=== PATIENT | female | born 1945 | race Caucasian/White ===

== ENCOUNTER 2018-12-22 07:27 | Inpatient (IN) ==
[2018-12-15 12:02] LABS: Appearance,Urine CLEAR; Bacteria,Urine 0 /hpf (0); Bilirubin,Urine NEG (NEG); Color,Urine YELLOW; Glucose,Urine (UA) NEGATIVE (NEG); Ketones,Urine NEG (NEG); Leukocyte Esterase,Urine NEG /uL (NEG); Mucus,Urine FEW /hpf (0); Nitrate,Urine NEG (NEG); Protein,Urine NEG (NEG); Specific Gravity,Urine 1.017 (1.000-1.035); Urine Blood 0.03 mg/dL (<0.03); Urine RBC 3 /hpf (0-1); Urine Squamous Epithelial Cell 1 /hpf (0-4); Urine WBC 4 /hpf (0-4); Urobilinogen,Urine NEG (NEG)
[2018-12-15 15:35] LABS: Basophils # (Auto) 0 K/mcL (0.0-0.3); Basophils % (Auto) 0.6 % (0.0-2.0); Eosinophils # (Auto) 0 K/mcL (0.0-0.7); Eosinophils % (Auto) 0.5 % (0.0-7.0); Granulocytes % (Auto) 66.7 % (38.0-78.0); Hematocrit 40.6 % (36.0-48.0); Hemoglobin 13.3 g/dL (12.0-15.0); Lymphocytes # (Auto) 1.2 K/mcL (1.5-4.8); Lymphocytes % (Auto) 23.9 % (15.5-49.0); Mean Cell Volume 92.3 fL (80.0-100.0); Mean Corpuscular HGB Conc 32.7 g/dL (31.0-36.0); Monocytes # (Auto) 0.4 K/mcL (0.1-0.9); Monocytes % (Auto) 8.3 % (1.0-12.0); Platelet Count 228 K/mcL (140-440); Red Cell Distribution Width 14.3 % (11.5-14.5); WBC 4.9 K/mcL (4.5-11.0)
[2018-12-15 15:43] LABS: INR 2.2 (0.9-1.1); Prothrombin Time 23.9 sec (11.9-14.5)
[2018-12-15 17:10] LABS: Blood Urea Nitrogen 31 mg/dl (8-23); Carbon Dioxide 28 mmol/L (22-30); Chloride 99 mmol/L (96-108); Glomerular Filtration Rate 63; Glucose 84 mg/dL (70-105)
[~2018-12-22 07:27] MED LIST: 0.9 % SODIUM CHLORIDE 9 ML, KETOROLAC 30 MG, ROPIVACAINE HCL/PF 49.5 ML, EPINEPHrine 0.... IJ SCH; ceFAZolin 2 GM in DEXTROSE 5% IN WATER 50 ML IV SCH
[2018-12-22] MEDS ORDERED: IPRATROPIUM/ALBUTEROL 3 ML AMPUL.NEB NEB PRN ×2 (08:46→10:43)
[2018-12-22] MEDS ORDERED: SCOPOLAMINE 1 PATCH PATCH TOPICAL PRN (08:46)
[2018-12-22] MEDS ORDERED: PHENYLEPHRINE 10 MG/ML VIAL IV ONE (09:35)
[2018-12-22] MEDS ORDERED: TRANEXAMIC ACID 1,000 MG/10 ML VIAL IV ONE ×2 (09:35→11:21)
[2018-12-22] MEDS ORDERED: ONDANSETRON 4 MG/2 ML VIAL IV ONE (09:35)
[2018-12-22] MEDS ORDERED: ePHEDrine 50 MG/ML AMPUL IV ONE (09:35)
[2018-12-22] MEDS ORDERED: MIDAZOLAM 5 MG/5 ML VIAL IV ONE (09:35)
[2018-12-22] MEDS ORDERED: ROPIVACAINE HCL/PF 20 ML VIAL IJ ONE (09:35)
[2018-12-22] MEDS ORDERED: PROPOFOL 200 MG/20 ML VIAL IV ONE (09:35)
[2018-12-22] MEDS ORDERED: LIDOCAINE HCL/PF 100 MG/5 ML SYRINGE IV ONE (09:35)
[2018-12-22] MEDS ORDERED: GLYCOPYRROLATE 0.2 MG/ML VIAL IV ONE (09:35)
[2018-12-22] MEDS ORDERED: DEXAMETHASONE 10 MG/ML VIAL IV ONE (09:35)
[2018-12-22] MEDS ORDERED: GENTAMICIN SULFATE 800 MG/20 ML VIAL IR ONE (10:07)
[2018-12-22] MEDS ORDERED: MEPERIDINE 25 MG/ML SYRINGE IV PRN (10:43)
[2018-12-22] MEDS ORDERED: METOPROLOL TARTRATE 5 MG/5 ML VIAL IV PRN (10:43)
[2018-12-22] MEDS ORDERED: FLUMAZENIL 0.1 MG/ML ML IV PRN (10:43)
[2018-12-22] MEDS ORDERED: diphenhydrAMINE 50 MG/ML VIAL IV PRN (10:43)
[2018-12-22] MEDS ORDERED: NALOXONE HCL 0.4 MG/ML VIAL IV PRN (10:43)
[2018-12-22] MEDS ORDERED: ACETAMINOPHEN 1,000 MG/100 ML BOTTLE IV ONE (10:43)
[2018-12-22] MEDS ORDERED: ATROPINE SULFATE 0.4 MG/ML VIAL IV PRN (10:43)
[2018-12-22] MEDS ORDERED: METHOCARBAMOL 1,000 MG/10 ML VIAL IV PRN (10:43)
[2018-12-22] MEDS ORDERED: ePHEDrine 50 MG/ML AMPUL IV PRN (10:43)
[2018-12-22] MEDS ORDERED: ONDANSETRON 4 MG/2 ML VIAL IV PRN ×2 (10:43→11:21)
[2018-12-22] MEDS ORDERED: PROMETHAZINE 25 MG/ML VIAL IV PRN (10:43)
[2018-12-22] MEDS ORDERED: LACTATED RINGERS 1,000 ML IV SCH (10:45)
[2018-12-22] MEDS ORDERED: BENZOCAINE/MENTHOL 1 LOZENGE PO PRN (11:21)
[2018-12-22] MEDS ORDERED: MAGNESIUM HYDROXIDE 30 ML ORAL.SUSP PO PRN (11:21)
[2018-12-22] MEDS ORDERED: POLYETHYLENE GLYCOL 3350 17 GM PACKET PO PRN (11:21)
[2018-12-22] MEDS ORDERED: FLEETS ADULT ENEMA PR PRN (11:21)
[2018-12-22] MEDS ORDERED: BISACODYL 10 MG SUPP.RECT PR PRN (11:21)
[2018-12-22] MEDS: fentaNYL 100 MCG/2 ML VIAL IV PRN ×4 (11:31→12:03)
--- NOTE | 2018-12-22 11:32 | Brief Operative Note ---
Date of procedure: 12/22/18 Pre-op diagnosis: l knee djd Post-op diagnosis: same Procedure: SUHA TKR Grafts/Implants: Yes (TRIATHLON KNEE SIXE 2 FEMUR, 9 MM cr POLY, 2 TIBIA, 29 MM PATELLA) Anesthesia: GETA Complications: none Surgeon: Jasson Demarco Slitting And Shipping Supervisor: Jasson Damico Estimated blood loss (cc): 100 Tourniquet Time (Minutes): 59 Specimens Removed/Pathology: other (SYNOVIAL BIOPSY) Condition: stable Disposition: PACU
--- NOTE | 2018-12-22 12:31 | XRay Report ---
CLINICAL INFORMATION: post op COMPARISON: None. FINDINGS: Total knee prostheses is anatomically aligned. No osseous abnormality. Periarticular gas and soft tissue swelling seen as expected. IMPRESSION: Negative Interpreted and Authenticated by: Son Mann 12/22/18
[2018-12-22] MEDS ORDERED: WARFARIN 3 MG TABLET PO SCH (14:00)
[2018-12-22] MEDS: 0.9 % SODIUM CHLORIDE 10 ML SYRINGE IV SCH ×2 (14:03→20:32)
[2018-12-22] MEDS: 0.9 % SODIUM CHLORIDE 1,000 ML IV SCH (14:29)
[2018-12-22] MEDS: HYDROCODONE/APAP 7.5/325MG TABLET PO PRN ×3 (14:53→23:21)
[2018-12-22] MEDS: ceFAZolin 1 GM VIAL IV SCH (16:28)
[2018-12-22] MEDS: DOCUSATE SODIUM 100 MG CAPSULE PO SCH (20:31)
[2018-12-22] MEDS ORDERED: SENNOSIDES 1 TABLET PO SCH (21:00)
[2018-12-22] MEDS ORDERED: ATORVASTATIN 20 MG TABLET PO SCH (21:00)
[2018-12-22] MEDS: ENOXAPARIN 60 MG/0.6 ML SYRINGE SQ SCH (23:21)
[2018-12-23] MEDS: ceFAZolin 1 GM VIAL IV SCH (01:32)
[2018-12-23] MEDS: 0.9 % SODIUM CHLORIDE 1,000 ML IV SCH ×2 (03:19→14:32)
[2018-12-23] MEDS: HYDROCODONE/APAP 7.5/325MG TABLET PO PRN (03:20)
[2018-12-23] MEDS: 0.9 % SODIUM CHLORIDE 10 ML SYRINGE IV SCH ×2 (04:57→14:30)
[2018-12-23 05:35] LABS: INR 1.1 (0.9-1.1); Prothrombin Time 14.1 sec (11.9-14.5)
[2018-12-23 05:37] LABS: Basophils # (Auto) 0 K/mcL (0.0-0.3); Basophils % (Auto) 0.3 % (0.0-2.0); Eosinophils # (Auto) 0 K/mcL (0.0-0.7); Eosinophils % (Auto) 0 % (0.0-7.0); Granulocytes % (Auto) 80.8 % (38.0-78.0); Hematocrit 30.9 % (36.0-48.0); Lymphocytes # (Auto) 0.7 K/mcL (1.5-4.8); Lymphocytes % (Auto) 10.5 % (15.5-49.0); Mean Cell Volume 93.4 fL (80.0-100.0); Mean Corpuscular HGB Conc 32.3 g/dL (31.0-36.0); Monocytes # (Auto) 0.6 K/mcL (0.1-0.9); Monocytes % (Auto) 8.4 % (1.0-12.0); Platelet Count 173 K/mcL (140-440); RBC 3.31 M/mcL (4.00-5.20); Red Cell Distribution Width 14.7 % (11.5-14.5); WBC 7.1 K/mcL (4.5-11.0)
[2018-12-23] MEDS ORDERED: OMEPRAZOLE 20 MG CAPSULE PO SCH (07:30)
[2018-12-23] MEDS ORDERED: LEVOTHYROXINE 88 MCG TABLET PO SCH (07:30)
[2018-12-23] MEDS ORDERED: HYDROmorphone 2 MG TABLET PO PRN (07:32)
--- NOTE | 2018-12-23 07:45 | Discharge Summary ---
Ortho Discharge - TKA - Patient Instructions Diet: Regular Diet Total Knee Protocol: For Total Knee: Start ROM EDWARDO with stationary bike or rocking chair. Work on gaining full extension of knee. Posterior dislocation precautions provided. Hip abductor strengthening and gait training instructions provided. Apply Cryocuff as instructed. Additional Instructions: Take your last does of Coumadin on December 17. Restart Coumadin & Lovenox the evening of your procedure, unless instructed otherwise. Must be started 12 hours after surgery. You will need to continue Lovenox for 5-7 days after your procedure. Have your Protime/INR drawn on Wednesday, 12/27 at 12:30 at the [facility]. - Problem Maintenance (1) Chronic knee pain after total replacement of left knee joint Status: Acute - Follow Up Plan Follow Up Appointments: Jasson Damico PA-C [Physician Social Human Services Assistants] - 01/04/19 8:40 am Disposition: Home, Self-Care Prognosis: Good Rehab Potential: Good I certify that the patient requires SNF services: No Overall status at discharge: patient is progressing back to baseline - Orders For Discharge Prescriptions: HYDROmorphone [Dilaudid] 2 mg PO Q4HP PRN #50 tab PRN Reason: Per Pain Protocol Prescription Printed Additional Discharge Orders: Physical Therapy at Discharge - TKA Location: None Selected
--- NOTE | 2018-12-23 07:47 | Discharge Summary ---
Providers - Providers Patient information: Note initiated : 12/23/18 at 7:45 am Service Date, if different from initiated Date: [] Patient: Faviola Ibrahim 73 y/o F admitted on 12/22/18 for Left Total Knee Arthroplasty Han and Synovial . Chief Complaint: [] Date of admission: 12/22/18 Discharge date: 12/23/18 Attending physician: Jasson Demarco Hospitalization Discharge diagnosis: total knee replacement left Exam - Exam Clean and dry: Yes Weight bearing status: full Ortho Discharge - TKA - Patient Instructions Diet: Regular Diet Total Knee Protocol: For Total Knee: Start ROM EDWARDO with stationary bike or rocking chair. Work on gaining full extension of knee. Posterior dislocation precautions provided. Hip abductor strengthening and gait training instructions provided. Apply Cryocuff as instructed. Additional Instructions: Take your last does of Coumadin on Wednesday, December 17. Restart Coumadin & Lovenox the evening of your procedure, unless instructed otherwise. Must be started 12 hours after surgery. You will need to continue Lovenox for 5-7 days after your procedure. Have your Protime/INR drawn on Wednesday, 12/27 at 12:30 at the [facility]. - Problem Maintenance (1) Chronic knee pain after total replacement of left knee joint Status: Acute - Follow Up Plan Follow Up Appointments: Jasson Damico PA-C [Physician Manager Psychology] - 01/04/19 8:40 am Disposition: Home, Self-Care Prognosis: Good Rehab Potential: Good I certify that the patient requires SNF services: No - Orders For Discharge Prescriptions: HYDROmorphone [Dilaudid] 2 mg PO Q4HP PRN #50 tab PRN Reason: Per Pain Protocol Prescription Printed Additional Discharge Orders: Physical Therapy at Discharge - TKA Location: None Selected Pending Studies Resuscitation Status Full Code Diet Regular Diet Start Jaclyn Dec 22 1356 Atorvastatin Calcium (Lipitor) 40 mg PO HS [facility] Last Admin: 12/22/18 20:31 Dose: 40 mg Documented by: YUNIORUVE Docusate Sodium (Colace) 100 mg PO BID [facility] Last Admin: 12/22/18 20:31 Dose: 100 mg Documented by: YUNIORUVE Enoxaparin Sodium (Lovenox) 60 mg SQ BID [facility] Last Admin: 12/22/18 23:21 Dose: 60 mg Documented by: RSAUVE Sodium Chloride (Sodium Chloride 0.9%) 1,000 mls @ 75 mls/hr IV .[id number] [facility] Last Admin: 12/23/18 03:19 Dose: Not Given Documented by: Admin: 12/22/18 14:29 Dose: 75 mls/hr Documented by: CARMEN [facility] Admin: 12/23/18 07:24 Dose: 88 mcg Documented by: SHU Morphine Sulfate (Morphine) 0 mg IV Q1HP PRN PRN Reason: PAIN LEVEL > 6 Last Admin: 12/22/18 18:17 Dose: 2 mg Documented by: Admin: 12/22/18 14:55 Dose: 2 mg Documented by: Admin: 12/22/18 12:41 Dose: 2 mg Documented by: CARMEN Omeprazole (Prilosec) 20 mg PO [facility] Last Admin: 12/23/18 07:24 Dose: 20 mg Documented by: SHU Senna (Senokot) 2 tab PO [facility] Last Admin: 12/22/18 20:32 Dose: Not Given Documented by: SUNIL Sodium Chloride (Saline Flush) 10 ml IV Q8 [facility] Last Admin: 12/23/18 04:57 Dose: 10 ml Documented by: Admin: 12/22/18 20:32 Dose: Not Given Documented by: Admin: 12/22/18 14:03 Dose: Not Given Documented by: [email or web address] Warfarin Sodium (Coumadin) 6 mg PO Th@1400 [facility] Last Admin: 12/22/18 14:54 Dose: 6 mg Documented by: CARMEN Shift Summary 12/23/18 03:52 Shift Summary by Vineet Olvera Pt has rested only a few hrs this shift. LT knee pain mod well controlled w/ PO Chamisal 7.5 (2) Q4hr PRN - last dose given @ 0320. She used cryo-cuff x1 early in the shift - declined after that - stated, "It did not seem to help", and she "was unable to feel to cold through her rick wrap". CPM 0-50 x2 this shift - tolerating well. Pt up AMB to Nsg desk & back to , as well as to & from B.R. - gait mod stable W/ FWW & CGA. Pt had been unable to void until 0320 - void was 50ml w/ 219ml PVR @ that time. IV LT F/A changed to saline lock @ 0320. VS - mostly WNl - B/P sl low - last was 106/60 @ 0320. Rick wrap LT leg - C,D,I. She is A&O x4, calm, pleasant, & cooperative. Initialized on 12/23/18 03:52 - END OF NOTE
[2018-12-23] MEDS ORDERED: POTASSIUM CHLORIDE 20 MEQ TABLET PO SCH (08:00)
[2018-12-23] MEDS: ENOXAPARIN 60 MG/0.6 ML SYRINGE SQ SCH (08:16)
[2018-12-23] MEDS: DOCUSATE SODIUM 100 MG CAPSULE PO SCH (08:17)
[2018-12-23] MEDS ORDERED: TRIAMTERENE/HYDROCHLOROTHIAZID 1 CAP CAPSULE PO SCH (09:00)
[2018-12-23] MEDS ORDERED: buPROPion 150 MG TAB.XL.24H PO SCH (09:00)
[2018-12-23] MEDS ORDERED: ENOXAPARIN 60 MG/0.6 ML SYRINGE SQ SCH (09:00)
[2018-12-23] MEDS ORDERED: ESCITALOPRAM 20 MG TABLET PO SCH (09:00)
[2018-12-23] MEDS ORDERED: ALLOPURINOL 100 MG TABLET PO SCH (09:00)
[2018-12-23] MEDS ORDERED: FLU VACC QS2019-20(6MOS UP)/PF 60 MCG/0.5 ML SYRINGE IM ONE (10:00)
[2018-12-23] MEDS: HYDROmorphone 2 MG TABLET PO PRN ×3 (11:51→16:20)
[2018-12-23] MEDS ORDERED: WARFARIN 4 MG TABLET PO SCH (14:00)
--- NOTE | 2018-12-26 14:45 | Surgical Pathology Report ---
HISTOLOGY SPECIMEN MICROSCOPIC DIAGNOSIS SYNOVIUM, LEFT KNEE, BIOPSY: -- SYNOVIAL HYPERPLASIA WITH CHRONIC INFLAMMATION. (RLF:an) PROCEDURAL IMPRESSION Evaluate for inflammatory arthritis. GROSS DESCRIPTION Received in formalin labeled left knee synovial biopsy, are two riley-coffey tissue fragments 0.8 and 1.2 cm. Entirely submitted - one cassette. (SCB:sln) Electronically Signed by: Debra Cano M.D.
[2018-12-28] MEDS ORDERED: ALENDRONATE SODIUM 70 MG TABLET PO SCH (07:30)
--- NOTE | 2019-01-05 12:30 | Operative Note ---
DATE OF OPERATION: 12/22/2018 PREOPERATIVE DIAGNOSIS: Left knee degenerative joint disease. POSTOPERATIVE DIAGNOSIS: Left knee degenerative joint disease. OPERATION: Han left total knee replacement. SURGEON: Jasson Demarco M.D. SURGICAL SERVICES ASSISTANT: Jasson Damico PA-C. The PA's assistance was required for the safe and efficient completion of the entire case. This provider's expertise and technical skill were required throughout the case. The PA assisted with preoperative coordination, intraoperative retraction, wound closure, dressing and splint application, as well as postoperative documentation and care coordination. ANESTHESIA: General. TOURNIQUET TIME: 59 minutes. ESTIMATED BLOOD LOSS: 100 mL. SUMMARY OF PROCEDURE: General anesthesia was attained. The left leg was prepped and draped. A thigh-level tourniquet was put up. Stab incisions were made in the femur and in the tibia. These were taken down to the bone. The pins for the arrays were next drilled into the bone. The arrays were next placed. A midline incision was made from the quadriceps to the tibial tubercle. This was taken down sharply to the quadriceps and medial retinaculum. I used a VMO split technique. The VMO was split starting about an inch above the quadriceps, and this was taken medial in line with the fibers of the VMO for about an inch. The medial retinaculum was also split. The patella was mobilized laterally. The anterior menisci were resected. The ACL was released. The hip center was then defined by counterclockwise rotation of the leg. The ankle was identified and registered at both the medial and lateral malleoli. A checkpoint was placed in the femur. A checkpoint was then placed in the tibia. We then did a registry on the femur and tibia. I then used the saw with the Han guidance. All the bone cuts were made. That is the tibia and the femur. On the femur we did the distal cut, as well as the bevel cuts, and the anterior cut and the posterior cut. The bone was next removed. The balancing was also done using the Han for flexion-extension gaps prior to the bone cuts. A size 2 tibia was used. A size 2 femur was used as well. Trial reductions were done. The best combination of full extension and flexion with excellent medial and lateral stability was with a 9 mm cruciate retaining poly. The patella was next everted. A measured resection was done, bringing the patella down from 23 mm to about 14 mm. Patella sized to a 29. Excess lateral facet was removed with a saw blade. The bone surfaces were thoroughly irrigated. The components were next cemented in. The cement was cured with the knee in full extension. Excess cement was removed. The no-touch test showed a lateral release was not needed. The tourniquet was let down. All bleeding points were coagulated. The quadriceps and medial retinaculum were closed with two stitches of Stratafix. The subcutaneous tissue was closed with buried 2-0 Monocryl. The skin was closed with Dura-Rincon. A sterile compressive dressing was applied. The sponge and needle count was correct. The patient tolerated the procedure well and was taken to the recovery room in stable condition. TJF:zaki Job ID: [id number] Doc ID: [id number] Jasson Demarco MD
== END 2018-12-23 16:30 | disposition home or self-care (01) | DRG 470 ==
LOC: MEDSUR 07:27
PROVIDERS: ADMIT Orthopaedic Surgery Foot and Ankle Surgery; ATTEND Orthopaedic Surgery Foot and Ankle Surgery